=== PATIENT | male | born 1955 ===

== ENCOUNTER 2024-06-01 15:14 | Emergency (ER) | payer MEDICARE, OTHER | END 2024-06-01 16:45 | disposition home or self-care (01) | LOC: NAV ERS 15:14 | DX: S23.41XA Sprain of ribs, initial encounter (principal); E11.9 Type 2 diabetes mellitus without complications; I10 Essential (primary) hypertension; E78.5 Hyperlipidemia, unspecified; Z87.891 Personal history of nicotine dependence; W22.8XXA Striking against or struck by other objects, initial encounter | CPT/HCPCS: 99284 ==